=== PATIENT | female | born 1955 | race Caucasian/White ===

== ENCOUNTER 2018-01-27 14:53 | Emergency (ER) | payer OTHER ==
[~2018-01-27] VITALS: Ht 154.9 cm; Wt 93.0 kg
[2018-01-27] MEDS ORDERED: NEXIUM40 MG PO (15:09)
[2018-01-27] MEDS ORDERED: PRAVASTATIN40 MG PO (15:09)
[2018-01-27] MEDS ORDERED: INDAPAMIDE2.5 MG PO (15:11)
[2018-01-27] MEDS ORDERED: METOPROL TAR25 MG PO (15:11)
[2018-01-27] MEDS ORDERED: METFORMIN500 MG PO (15:11)
[2018-01-27] MEDS ORDERED: ASPIRIN81 MG PO (15:12)
[2018-01-27] MEDS ORDERED: EZETIMIBE10 MG PO (15:12)
[2018-01-27 15:35] LABS: URINE BILIRUBIN - DIPSTICK NEGATIVE (NEGATIVE); URINE BLOOD DIPSTICK LARGE (NEGATIVE); URINE COLOR YELLOW; URINE GLUCOSE - DIPSTICK NEGATIVE (NEGATIVE); URINE KETONE NEGATIVE (NEGATIVE); URINE NITRITE - DIPSTICK NEGATIVE (Negative); URINE PH 5.5 (4.5-8.0); URINE PROTEIN - DIPSTICK TRACE mg/dL (NEG-TRACE); URINE SPECIFIC GRAVITY >=1.030; URINE UROBILINOGEN - DIPSTICK 0.2 E.U./dL (0.2)
[2018-01-27 15:43] LABS: URINE CLARITY SL CLOUDY; URINE LEUK ESTERASE SMALL (NEGATIVE)
[2018-01-27 15:45] LABS: URINE BACTERIA FEW hpf; URINE SQUAMOUS EPITHELIAL CELL FEW EPI/hpf (0-FEW); URINE WBC 20-50 WBC/hpf (0-5)
[2018-01-27] MEDS ORDERED: CIPROFLOXACN500 MG PO (16:03)
[2018-01-27] MEDS ORDERED: PYRIDIUM200 MG PO (16:03)
[2018-01-27 16:06] VITALS: BP 141/84
== END 2018-01-27 16:06 | disposition home or self-care (01) | DRG 690 ==
LOC: ED 14:53
PROVIDERS: Emergency Medicine
DX: N39.0 Urinary tract infection, site not specified (principal); I10 Essential (primary) hypertension; E11.9 Type 2 diabetes mellitus without complications; E78.00 Pure hypercholesterolemia, unspecified; K21.9 Gastro-esophageal reflux disease without esophagitis; I35.0 Nonrheumatic aortic (valve) stenosis; B96.20 Unspecified Escherichia coli [E. coli] as the cause of diseases classified elsewhere